=== PATIENT | male | born 1950 | race American Indian/Alaskan Native ===

== ENCOUNTER 2019-10-12 14:28 | Emergency (ER) | payer MEDICARE ==
--- NOTE | 2019-10-12 14:38 | Emergency Department Report ---
ED CPR HPI - General Stated Complaint: CARDIAC ARREST Time Seen by Provider: 10/12/19 14:28 Source: EMS Mode of arrival: Stretcher Limitations: Altered Mental Status - History of Present Illness Initial Comments: History obtained from EMS since patient is unresponsive This is a 69-year-old male with a past medical history hypertension, stroke, and pneumonia presents to the hospital in cardiopulmonary arrest. Patient was at home with son last saw patient normal 1 hour prior to arrest. 911 called at 1:50 PM. EMS at the scene at 2 PM. Patient was in asystole upon their arrival. 2 intubation attempts prior to keeping airway placement, Accu-Chek 107, patient received 4 epinephrine boluses prior to arrival with no change in rhythm. Spoke to son after arrival to the ED. Patient was briefly diagnosed with pneumonia and currently on antibiotics. Did not have any complaints earlier and was outside working on car. Last seen 1 hour prior to being found unresponsive in his room. ED Review of Systems ROS: Stated complaint: CARDIAC ARREST Other details as noted in HPI Comment: Unobtainable due to pts medical conditions ED Physical Exam - Other Other exam information: General: Unresponsive Head: Atraumatic Eyes: Pupils fixed ENT: Moist mucous membranes. Airway with blood from oropharynx Neck: Normal appearance Chest: Apneic Breath sounds with bagging CV: Pulseless Abdomen: Soft, nondistended Back: Normal inspection Extremity: Normal inspection Neuro: GCS 3 Psych: Unresponsive Skin: No rash ED Medical Decision Making - Medical Decision Making pt present with cardiopulmonary arrest with no change in asystole with 30 min or resuscitation efforts. Additional epinephrine given upon arrival with no change in rhythm. Time of : 14:30 Critical care attestation.: If time is entered above; I have spent that time in minutes in the direct care of this critically ill patient, excluding procedure time. ED Disposition Clinical Impression: Cardiopulmonary arrest Disposition: DC-20 Is pt being admited?: No Does the pt Need Aspirin: No Condition: Stable Referrals: JESSICA VILLA MD [Primary Care Provider] - 3-5 Days Time of Disposition: 14:37
== END 2019-10-12 16:52 ==
LOC: ED 14:28
DX: I46.8 Cardiac arrest due to other underlying condition (principal)
CPT/HCPCS: 92950